=== PATIENT | male | born 1975 | race Caucasian/White ===

== ENCOUNTER 2021-08-09 18:09 | Emergency (ER) | payer BC ==
[~2021-08-09] VITALS: Ht 180.3 cm; Wt 72.6 kg
[2021-08-09 18:25] VITALS: BP 138/74
== END 2021-08-09 20:00 | disposition home or self-care (01) ==
LOC: ED 18:09
DX: U07.1 COVID-19 (principal)

== ENCOUNTER 2023-01-30 12:55 | Emergency (ER) | payer BC ==
[~2023-01-30] VITALS: Ht 182.8 cm; Wt 74.8 kg
[2023-01-30 13:05] VITALS: BP 135/88
== END 2023-01-30 13:36 | disposition home or self-care (01) ==
LOC: ED 12:55
DX: T63.441A Toxic effect of venom of bees, accidental (unintentional), initial encounter (principal); R42 Dizziness and giddiness; Z98.890 Other specified postprocedural states; Y92.89 Other specified places as the place of occurrence of the external cause